=== PATIENT | female | born 1930 | race Caucasian/White ===

== ENCOUNTER 2018-01-13 13:39 | Emergency (ER) | payer OTHER ==
[2018-01-13] MEDS ORDERED: SODIUM BICARBONATE [ADULT] 8.4% 50 MEQ/50 ML SYRINGE IVP ONE (13:46)
[2018-01-13] MEDS ORDERED: ATROPINE SULFATE 0.1 MG/ML 10 ML SYRINGE IVP ONE (13:46)
== END 2018-01-13 18:51 | disposition expired ==
LOC: EDBD 13:45 → EMS 13:45
DX: I46.9 Cardiac arrest, cause unspecified (principal)
CPT/HCPCS: 31500; 36556; 92950; 99291; J0461; J3490